=== PATIENT | male | born 1985 ===

== ENCOUNTER 2018-01-16 19:37 | Emergency (ER) | payer OTHER ==
[2018-01-16 19:54] VITALS: BP 130/83; PULSE 59; TEMP 98.5; O2SAT 100
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
[2018-01-16 21:27] VITALS: RESP 20
--- NOTE | 2018-01-17 09:04 | RAD ---
PROCEDURE: Cervical Spine Radiographs. HISTORY: Pain. COMPARISON: None. FINDINGS: BONES: Alignment maintained. No fracture. Dens Intact. DISC SPACES: Normal. SOFT TISSUES: Normal. No prevertebral soft tissue swelling. OTHER FINDINGS: None. IMPRESSION: Normal cervical spine radiographs
== END 2018-01-16 21:27 | disposition home or self-care (01) ==
LOC: C.ER 19:37
DX: S16.1XXA Strain of muscle, fascia and tendon at neck level, initial encounter (principal); V49.9XXA Car occupant (driver) (passenger) injured in unspecified traffic accident, initial encounter